=== PATIENT | female | born 1970 ===

== ENCOUNTER 2022-10-06 05:58 | Day surgery (SDC) | payer OTHER ==
[~2022-10-06] VITALS: Ht 157.5 cm; Wt 69.4 kg
[~2022-10-06 05:58] MED LIST: LOSARTAN-HCTZ1 EAC2 PO; METFOR PO
== END 2022-10-06 15:10 | disposition home or self-care (01) ==
LOC: CIR.AMB 05:58
PROVIDERS: ATTEND Orthopaedic Surgery Hand Surgery
DX: M65.332 Trigger finger, left middle finger (principal); Z20.822 Contact with and (suspected) exposure to COVID-19; I10 Essential (primary) hypertension; F17.210 Nicotine dependence, cigarettes, uncomplicated